=== PATIENT | male | born 1960 | race Caucasian/White ===

== ENCOUNTER 2021-10-11 22:58 | Emergency (ER) | payer BC ==
[2021-10-11 23:28] LABS: Absolute Lymphocytes (CBC) 2.2 K/uL (0.7-4.9); Hematocrit 50.9 % (39.6-49.0); Lymphocytes % 32.2 % (15.3-44.8); MCV 83.1 fL (80-100); MPV 8.3 fL (7.6-11.3); RBC Red Blood Cell Count 6.12 M/uL (4.33-5.43)
[2021-10-11] MEDS ORDERED: LOSARTAN POTASSIUM 50 MG TABLET ONE (23:36)
[2021-10-11] MEDS ORDERED: METOPROLOL TARTRATE 5 MG/5 ML INJ IV ONE (23:36)
[2021-10-11 23:43] LABS: Potassium 3.6 mmol/L (3.5-5.1); Troponin High Sensitivity 6.2 pg/mL (<58.9)
--- NOTE | 2021-10-12 00:43 | EDPHYS ---
Physician Documentation [facility] Name: Nasim Carbajal Age: 60 yrs Sex: Male : 1960 Arrival Date: 10/11/2021 Time: 23:00 Bed 2 Private MD: ED Physician Benji Love HPI: 10/12 03:32 This 60 yrs old Male presents to ER via EMS with complaints of High Blood Pressure. kdr 03:32 Patient states he is new to [facility] and has not found a doctor yet. He had an in that time kdr that he has been here, about a month, he has not found a physician and his has been out of his medications. This evening for the last day or so he has felt a little anxious and was concerned that his blood pressure was elevated. Otherwise he has no focal complaints. Onset: The symptoms/episode began/occurred gradually, 1.5 day(s) ago. Severity of symptoms: At their worst the symptoms were mild in the emergency department the symptoms are unchanged. The patient has not experienced similar symptoms in the past. The patient has not recently seen a physician. Historical: - Allergies: 10/11 23:04 No Known Allergies; tw5 - PMHx: 23:04 Hypertensive disorder; Diabetes mellitus; Congestive heart failure; tw5 - PSHx: 23:04 bilateral knee surgery; tw5 - Immunization history:: Flu vaccine is not up to date. - Social history:: Smoking status: Patient/guardian denies using tobacco, the patient reports quitting approximately 8 years ago. ROS: 10/12 03:32 Constitutional: Negative for fever, chills, and weight loss, he has felt slightly kdr anxious Eyes: Negative for injury, pain, redness, and discharge, ENT: Negative for injury, pain, and discharge, Neck: Negative for injury, pain, and swelling, Cardiovascular: Negative for chest pain, palpitations, and edema, Respiratory: Negative for shortness of breath, cough, wheezing, and pleuritic chest pain, Abdomen/GI: Negative for abdominal pain, nausea, vomiting, diarrhea, and constipation, Back: Negative for injury and pain, : Negative for injury, bleeding, discharge, and swelling, MS/Extremity: Negative for injury and deformity, Skin: Negative for injury, rash, and discoloration, Neuro: Negative for headache, weakness, numbness, tingling, and seizure activity. Psych: Negative for depression, anxiety, suicide ideation, homicidal ideation, and hallucinations, Allergy/Immunology: Negative for hives, rash, and allergies, Endocrine: Negative for neck swelling, polydipsia, polyuria, polyphagia, and marked weight changes, Hematologic/Lymphatic: Negative for swollen nodes, abnormal bleeding, and unusual bruising. Exam: 03:32 Constitutional: This is a well developed, well nourished patient who is awake, alert, kdr and in no acute distress. Head/Face: Normocephalic, atraumatic. Eyes: Pupils equal round and reactive to light, extra-ocular motions intact. Lids and lashes normal. Conjunctiva and sclera are non-icteric and not injected. Cornea within normal limits. Periorbital areas with no swelling, redness, or edema. Neck: Trachea midline, no thyromegaly or masses palpated, and no cervical lymphadenopathy. Supple, full range of motion without nuchal rigidity, or vertebral point tenderness. No Meningismus. Chest/axilla: Normal chest wall appearance and motion. Nontender with no deformity. No lesions are appreciated. Cardiovascular: Regular rate and rhythm with a normal S1 and S2. No gallops, murmurs, or rubs. Normal PMI, no JVD. No pulse deficits. Respiratory: Lungs have equal breath sounds bilaterally, clear to auscultation and percussion. No rales, rhonchi or wheezes noted. No increased work of breathing, no retractions or nasal flaring. Abdomen/GI: Soft, non-tender, with normal bowel sounds. No distension or tympany. No guarding or rebound. No evidence of tenderness throughout. Back: No spinal tenderness. No costovertebral tenderness. Full range of motion. Skin: Warm, dry with normal turgor. Normal color with no rashes, no lesions, and no evidence of cellulitis. MS/ Extremity: Pulses equal, no cyanosis. Neurovascular intact. Full, normal range of motion. Neuro: Awake and alert, GCS 15, oriented to person, place, time, and situation. Cranial nerves II-XII grossly intact. Motor strength 5/5 in all extremities. Sensory grossly intact. Cerebellar exam normal. Normal gait. Psych: Awake, alert, with orientation to person, place and time. Behavior, mood, and affect are within normal limits. Vital Signs: 10/11 23:01 BP 208 / 125; Pulse 115; Resp 14; Temp 98.3; Pulse Ox 95% on R/A; Weight 108.86 kg; tw5 Height 5 ft. 11 in. (180.34 cm); Pain 0/10; 23:33 BP 190 / 160; Pulse 98; Resp 18; Pulse Ox 94% on R/A; tw5 23:34 BP 181 / 113; Pulse 98; Resp 16; Pulse Ox 94% on R/A; tw5 23:40 BP 158 / 118; Pulse 87; Resp 18; Pulse Ox 96% on R/A; tw5 10/12 00:00 BP 164 / 101; Pulse 83; Resp 16; Pulse Ox 96% on R/A; hb 01:01 BP 155 / 95; Pulse 18; Resp 18; Pulse Ox 96% on R/A; tw5 10/11 23:01 Body Mass Index 33.47 (108.86 kg, 180.34 cm) tw5 MDM: 00:42 Patient medically screened. kdr 03:32 Data reviewed: vital signs, nurses notes, lab test result(s), EKG, radiologic studies. kdr Counseling: I had a detailed discussion with the patient and/or guardian regarding: the historical points, exam findings, and any diagnostic results supporting the discharge/admit diagnosis, lab results, radiology results, the need for outpatient follow up. 03:32 ED course: Patient responded well to the interventions given. He was happy with care kdr provider and the plan for discharge and follow-up. 10/11 23:06 Order name: Basic Metabolic Panel; Complete Time: 00:30 hb 10/11 23:06 Order name: CBC with Diff; Complete Time: 00:30 hb 10/11 23:06 Order name: Troponin HS; Complete Time: 00:30 hb 10/11 23:06 Order name: XRAY Chest (1 view) 10/11 23:38 Order name: CT Head Brain wo Cont kdr 10/11 23:06 Order name: EKG; Complete Time: 23:06 hb 10/11 23:06 Order name: Cardiac monitoring; Complete Time: 23:06 hb 10/11 23:06 Order name: EKG - Nurse/Tech; Complete Time: 23:16 hb 10/11 23:06 Order name: IV Saline Lock; Complete Time: 23:06 hb 10/11 23:06 Order name: Labs collected and sent; Complete Time: 23:16 hb 10/11 23:06 Order name: O2 Per Protocol; Complete Time: 23:06 hb 10/11 23:06 Order name: O2 Sat Monitoring; Complete Time: 23:06 hb Administered Medications: 10/11 23:30 Drug: Losartan 100 mg Route: PO; 10/12 01:06 Follow up: Response: No adverse reaction; Blood sugar is lowered 5 10/11 23:33 Drug: Lopressor (metoprolol) 5 mg Route: IVP; Site: right antecubital; tw 23:38 Drug: Lopressor (metoprolol) 5 mg Route: IVP; Site: right forearm; tw5 23:43 Drug: Lopressor (metoprolol) 5 mg Route: IVP; Site: right forearm; tw5 10/12 01:06 Follow up: Response: No adverse reaction; Blood pressure is lowered 5 Disposition Summary: 10/12/21 00:42 Discharge Ordered Location: Home kdr Problem: new kdr Symptoms: have improved kdr Condition: Stable kdr Diagnosis - Hypertensive heart disease without heart failure kdr Followup: kdr - With: Private Physician - When: 2 - 3 days - Reason: If symptoms return, Further diagnostic work-up, Recheck today's complaints, Continuance of care, Re-evaluation by your physician Discharge Instructions: - Discharge Summary Sheet kdr - Hypertension, Adult, [id number] kdr Forms: - Medication Reconciliation Form kdr - Thank You Letter kdr Prescriptions: - losartan 100 mg Oral tablet - take 1 tablet by ORAL route once daily; 30 tablet; Refills: 0, Product kdr Selection Permitted Signatures: Dispatcher [employer] Benji Saleh MD MD kdr Tata Kumar RN RN Jennifer Love 5 Corrections: (The following items were deleted from the chart) 10/11 23:05 23:04 PMHx: Congenital heart disease; tw5 tw5
--- NOTE | 2021-10-12 00:43 | ER ---
Nurse's Notes [facility] Name: Nasim Carbajal Age: 60 yrs Sex: Male : 1960 Arrival Date: 10/11/2021 Time: 23:00 Bed 2 Private MD: Diagnosis: Hypertensive heart disease without heart failure Presentation: 10/11 23:01 Chief complaint: EMS states: "He is new to town and ran out of his blood pressure tw5 medications. He has not found a PCP in the area and didn't think to call his old doctor for a refill. He was anxious that his blood pressure was so high and he didn't have any medications.". Coronavirus screen: Vaccine status: Patient reports being unvaccinated. Ebola Screen: Patient negative for fever greater than or equal to 101.5 degrees Fahrenheit, and additional compatible Ebola Virus Disease symptoms Patient denies exposure to infectious person. Patient denies travel to an Ebola-affected area in the 21 days before illness onset. Initial Sepsis Screen: Does the patient meet any 2 criteria? HR > 90 bpm. Does the patient have a suspected source of infection? No. Patient's initial sepsis screen is negative. Risk Assessment: Do you want to hurt yourself or someone else? Patient reports no desire to harm self or others. Onset of symptoms Onset of symptoms was October 11, 2021. 23:01 Method Of Arrival: EMS: [facility] tw5 23:01 Acuity: STACIE 3 tw5 Triage Assessment: 23:04 General: Appears in no apparent distress. Behavior is calm, cooperative, appropriate tw5 for age, anxious. Neuro: Level of Consciousness is awake, alert, obeys commands, Oriented to person, place, time, situation. Historical: - Allergies: 23:04 No Known Allergies; tw5 - PMHx: 23:04 Hypertensive disorder; Diabetes mellitus; Congestive heart failure; tw5 - PSHx: 23:04 bilateral knee surgery; tw5 - Immunization history:: Flu vaccine is not up to date. - Social history:: Smoking status: Patient/guardian denies using tobacco, the patient reports quitting approximately 8 years ago. Screenin:06 Abuse screen: Denies threats or abuse. Denies injuries from another. Nutritional tw5 screening: No deficits noted. Tuberculosis screening: No symptoms or risk factors identified. Fall Risk None identified. Assessment: 23:09 General: Appears in no apparent distress. Behavior is calm, cooperative, appropriate tw5 for age. Pain: Denies pain. Neuro: Level of Consciousness is awake, alert, obeys commands, Oriented to person, place, time, situation. Cardiovascular: Heart tones S1 S2 present. Respiratory: Airway is patent Trachea midline Respiratory effort is even, unlabored. 23:40 Reassessment: Patient appears in no apparent distress at this time. No changes from tw5 previously documented assessment. Patient and/or family updated on plan of care and expected duration. Pain level reassessed. Vital Signs: 23:01 BP 208 / 125; Pulse 115; Resp 14; Temp 98.3; Pulse Ox 95% on R/A; Weight 108.86 kg; tw5 Height 5 ft. 11 in. (180.34 cm); Pain 0/10; 23:33 BP 190 / 160; Pulse 98; Resp 18; Pulse Ox 94% on R/A; tw5 23:34 BP 181 / 113; Pulse 98; Resp 16; Pulse Ox 94% on R/A; tw5 23:40 BP 158 / 118; Pulse 87; Resp 18; Pulse Ox 96% on R/A; tw5 10/12 00:00 BP 164 / 101; Pulse 83; Resp 16; Pulse Ox 96% on R/A; hb 01:01 BP 155 / 95; Pulse 18; Resp 18; Pulse Ox 96% on R/A; tw5 10/11 23:01 Body Mass Index 33.47 (108.86 kg, 180.34 cm) tw5 ED Course: 10/11 23:00 Patient arrived in ED. tw5 23:00 Jennifer Maldonado is Primary Nurse. tw5 23:04 Triage completed. tw5 23:04 Arm band placed on left wrist. tw5 23:05 Patient has correct armband on for positive identification. Placed in gown. Bed in low tw5 position. Call light in reach. Side rails up X 1. Client placed on continuous cardiac and pulse oximetry monitoring. NIBP monitoring applied. Door closed. Noise minimized. Moved to private room. Warm blanket given. Verbal reassurance given. 23:06 Inserted saline lock: 20 gauge in right antecubital area, using aseptic technique. hb Blood collected. 23:09 Initial lab(s) drawn, by ED staff, sent to lab. tw5 23:15 Benji Love MD is Attending Physician. kdr 23:16 Basic Metabolic Panel Sent. tw5 23:16 CBC with Diff Sent. tw5 23:16 Troponin HS Sent. tw5 23:26 XRAY Chest (1 view) In Process Unspecified. EDMS 23:34 No provider procedures requiring assistance completed. tw5 10/12 00:15 CT Head Brain wo Cont In Process Unspecified. EDMS 01:02 IV discontinued, intact, bleeding controlled, No redness/swelling at site. Pressure tw5 dressing applied. Administered Medications: 10/11 23:30 Drug: Losartan 100 mg Route: PO; tw10/12 01:06 Follow up: Response: No adverse reaction; Blood sugar is lowered tw5 10/11 23:33 Drug: Lopressor (metoprolol) 5 mg Route: IVP; Site: right antecubital; tw5 23:38 Drug: Lopressor (metoprolol) 5 mg Route: IVP; Site: right forearm; tw5 23:43 Drug: Lopressor (metoprolol) 5 mg Route: IVP; Site: right forearm; tw5 10/12 01:06 Follow up: Response: No adverse reaction; Blood pressure is lowered tw Medication: 10/11 23:09 VIS not applicable for this client. tw Outcome: 10/12 00:42 Discharge ordered by . kdr 01:01 Discharged to home ambulatory. tw5 01:01 Condition: stable 01:01 Discharge instructions given to patient, Instructed on discharge instructions, follow up and referral plans. Demonstrated understanding of instructions, follow-up care, medications, Prescriptions given X 1. 01:06 Patient left the ED. Signatures: Dispatcher [employer] EDOK Benji Love MD MD kdr Tata Kumar, KEVIN RN Jennifer Love Corrections: (The following items were deleted from the chart) 10/11 23:05 23:04 PMHx: Congenital heart disease; tw5 tw5
[2021-10-12 02:22] VITALS: TEMP 98.3
[2021-10-12 02:33] VITALS: O2SAT 96
[2021-10-12 02:38] VITALS: BP 155/95
--- NOTE | 2021-10-12 10:20 | EKG ---
Test Date: 2021-10-11 Test Time: 23:18:25 Reinforced Concrete Inspector: MEASUREMENT RESULTS: Intervals: Rate: 105 [place]: 194 QRSD: 138 QT: 372 QTc: 491 [place]: P: 21 [place]: 194 QRS: -64 T: 43 INTERPRETIVE STATEMENTS: Sinus tachycardia Left axis deviation Left ventricular hypertrophy with QRS widening Abnormal ECG No previous ECG available for comparison Electronically Signed On 10-12-21 10:19:56 CDT by Massimo Tom
--- NOTE | 2021-10-12 14:21 | RAD REPORT ---
EXAM DESCRIPTION: CT - Head Brain Wo Cont - 10/12/2021 6:51 am CLINICAL HISTORY: Headache, new or worsening TECHNIQUE: Axial computed tomography images of the head/brain without intravenous contrast. Sagitt al and coronal reformatted images were created and reviewed. This CT exam was performed using one o r more of the following dose reduction techniques: automated exposure control, adjustment of the mA and/or kV according to patient size, and/or use of iterative reconstruction technique. COMPARISON: No relevant prior studies available. FINDINGS: Brain: Mild cerebral atrophy. Minimal bilateral periventricular and subcortical white ma tter low-attenuation which is nonspecific and can be seen in the setting of chronic microvascular ang iopathy. No hemorrhage. Ventricles: Unremarkable. No ventriculomegaly. Bones/joints: Unremarkable. No acute fracture. Soft tissues: Unremarkable. Vasculature: There is atherosclerotic disease of the internal carotid arteries bilaterally. Sinuses: Minimal bilateral ethmoid sinus mucosal thickening. Paranasal sinus nguyen appears somewhat diffusely thickened which can be seen in the setting of chronic sinusitis. Mastoid air cells: Unremarkable as visualized. No mastoid effusion. IMPRESSION: 1. No acute intracranial or extra-axial abnormality. 2. Other findings as above. Electronically signed by: Rosi Booker MD 10/12/2021 12:21 AM CDT Due to temporary technical issues with the PACS/Fluency reporting system, reports are being signed by the in house radiologists without review as a courtesy to insure prompt reporting. The interpreting radiologist is fully responsible for the content of the report.
--- NOTE | 2021-10-12 14:46 | RAD REPORT ---
EXAM DESCRIPTION: RAD - Chest Single View - 10/11/2021 11:24 pm CLINICAL HISTORY: SOB COMPARISON: None. FINDINGS: Single frontal radiograph view of the chest. Cardiomediastinal silhouette: Atherosclerotic calcification of thoracic aorta. Cardiomegaly. Leads ov erlie the chest. Lungs: No consolidation, pneumothorax, or pleural effusion. Low lung volumes. Mild pulmonary vascular congestion. Bones: Degenerative change of the spine. Upper abdomen: No abnormality identified. IMPRESSION: 1. Cardiomegaly with pulmonary vascular congestion. Electronically signed by: Emerson Goel 10/11/2021 11:50 PM CDT Due to temporary technical issues with the PACS/Fluency reporting system, reports are being signed by the in house radiologists without review as a courtesy to insure prompt reporting. The interpreting radiologist is fully responsible for the content of the report.
== END 2021-10-12 01:06 | disposition home or self-care (01) ==
LOC: ER 22:58
DX: I11.9 Hypertensive heart disease without heart failure (principal); E11.9 Type 2 diabetes mellitus without complications; I10 Essential (primary) hypertension; I50.9 Heart failure, unspecified
CPT/HCPCS: 36415; 70450; 71045; 80048; 84484; 85025; 93005; 99284